=== PATIENT | female | born 1955 | race Caucasian/White ===

== ENCOUNTER 2017-06-30 08:46 | Day surgery (SDC) | payer MEDICARE, OTHER ==
[2017-06-23 11:11] LABS: ABSOLUTE EOSINOPHILS # (AUTO) 0.2 10^3/uL (0.0-0.6); ABSOLUTE LYMPHOCYTES (AUTO) 1.9 10^3/uL (0.5-4.7); ABSOLUTE MONOCYTES (AUTO) 0.4 10^3/uL (0.1-1.4); ABSOLUTE NEUT (AUTO) 2.2 10^3/uL (1.7-8.2); BASOPHILS % (AUTO) 0.7 % (0-2); EOSINOPHILS % (AUTO) 3.6 % (0-6); HEMOGLOBIN 14.5 g/dL (12.0-15.5); LYMPHOCYTES % (AUTO) 40.7 % (13-45); MEAN CORPUSCULAR HEMOGLOBIN 32.4 pg (27.0-33.4); MEAN CORPUSCULAR HGB CONC 33.6 g/dL (32.0-36.0); MEAN CORPUSCULAR VOLUME 96 fl (80-97); MONOCYTES % (AUTO) 7.6 % (3-13); PLATELET COUNT 247 10^3/uL (150-450); RED BLOOD COUNT 4.46 10^6/uL (3.72-5.28); RED CELL DISTRIBUTION WIDTH 13.3 % (11.5-14.0); SEGMENTED NEUTROPHILS % (AUTO) 47.4 % (42-78); TOTAL CELLS COUNTED % (AUTO) 100 %; WHITE BLOOD COUNT 4.7 10^3/uL (4.0-10.5)
[2017-06-23 11:16] LABS: APPEARANCE,URINE SLIGHTLY-CLOUDY; BILIRUBIN,URINE NEGATIVE (NEGATIVE); CALCIUM OXALATE CRYSTALS,URINE MANY /HPF; COLOR,URINE YELLOW; GLUCOSE, URINE NEGATIVE (NEGATIVE); KETONES,URINE NEGATIVE (NEGATIVE); LEUKOCYTE ESTERASE,URINE TRACE (NEGATIVE); NITRITE,URINE NEGATIVE (NEGATIVE); PROTEIN,URINE NEGATIVE (NEGATIVE)
--- NOTE | 2017-06-23 11:26 | RADIOLOGY REPORT (SQ) ---
EXAM DESCRIPTION: CHEST PA/LATERAL COMPLETED DATE/TIME: 06/23/2017 10:39 am REASON FOR STUDY: PRE OP COMPARISON: None. TECHNIQUE: Frontal and lateral radiographic views of the chest acquired. NUMBER OF VIEWS: Two view. LIMITATIONS: None. FINDINGS: LUNGS AND PLEURA: No opacities, masses or pneumothorax. No pleural effusion. MEDIASTINUM AND HILAR STRUCTURES: No masses or contour abnormalities. HEART AND VASCULAR STRUCTURES: Heart normal size. No evidence for failure. BONES: No acute findings. HARDWARE: None in the chest. OTHER: No other significant finding. IMPRESSION: NO SIGNIFICANT RADIOGRAPHIC FINDING IN THE CHEST. TECHNICAL DOCUMENTATION: JOB ID: [id number] [employer]- All Rights Reserved Reading location - IP/workstation name: [email or web address]
[2017-06-23 11:34] LABS: ANION GAP 11 (5-19); BLOOD UREA NITROGEN 14 mg/dL (7-20); CALCIUM 10.1 mg/dL (8.4-10.2); CARBON DIOXIDE 26 mmol/L (22-30); CHLORIDE 106 mmol/L (98-107); GLUCOSE 92 mg/dL (75-110); POTASSIUM 4.2 mmol/L (3.6-5.0)
--- NOTE | 2017-06-23 13:22 | EKG REPORT ---
SEVERITY:- NORMAL ECG - SINUS RHYTHM : Confirmed by: Carlos Kelsey MD 23-Jun-2017 13:22:12
[~2017-06-30 08:46] MED LIST: BUPIVACAINE HCL 0.5 % INJ/PF 30 ML SDV ONE; CLINDAMYCIN 600 MG/D5W RTU 600 MG/50 ML RTUPB IV PRN; LACTATED RINGERS 1000 ML IV PRN; LIDOCAINE 0.5% INJ-PF (5 MG/ML) 50 ML SDV SUBCUT PRN
[2017-06-30] MEDS ORDERED: MIDAZOLAM 2 MG/2 ML INJ ONE (10:06)
[2017-06-30] MEDS ORDERED: ACETAMINOPHEN 100 ML IV ONE (10:06)
[2017-06-30] MEDS ORDERED: PROPOFOL INJ 200 MG/20 ML VIAL IV ONE (10:06)
[2017-06-30] MEDS ORDERED: FENTANYL CITRATE INJ/PF 100 MCG/2 ML AMPUL ONE ×2 (10:06→13:09)
[2017-06-30] MEDS ORDERED: EPHEDRINE SULFATE INJ 50 MG/1 ML AMPULE ONE (10:07)
[2017-06-30] MEDS ORDERED: OXYCODONE-ACETAMINOPHEN 5-325 MG TABLET PO PRN ×3 (12:03→12:46)
[2017-06-30] MEDS ORDERED: MEPERIDINE HCL/PF INJ 25 MG/1 ML DISP.SYRIN IV PRN (12:03)
[2017-06-30] MEDS ORDERED: ONDANSETRON HCL INJ/PF 4 MG/2 ML SDV IV PRN (12:03)
[2017-06-30] MEDS ORDERED: PROMETHAZINE HCL INJ 25 MG/1 ML VIAL IV PRN ×2 (12:03)
[2017-06-30] MEDS ORDERED: FENTANYL CITRATE INJ/PF 100 MCG/2 ML AMPUL IV PRN ×3 (12:03)
[2017-06-30] MEDS ORDERED: DIPHENHYDRAMINE HCL 50 MG/ML VIAL IV PRN (12:03)
[2017-06-30] MEDS ORDERED: MORPHINE SULFATE 10 MG/ML INJ IV PRN (12:46)
--- NOTE | 2017-06-30 12:47 | Discharge Summary ---
Discharge Summary (SDC) - Discharge Final Diagnosis: Ulnar shortening osteotomy right wrist Date of Surgery: 06/30/17 Discharge Date: 06/30/17 Treatment or Instructions: Schedule Follow Up w/ Dr. Torey Brewer @ [facility] to be seen in 10-14 days or as scheduled [place]: [place]: [place]: Ice and elevate Keep splint clean/dry/intact. If your fingers become numb please unwrap the Geronimo wrap but leave the splint in place, if the sensation does not return within 30 minutes please return to the emergency department. May begin finger range of motion attempting to make full fist. Please use ibuprofen (Motrin or Advil) 600-800 mg every 8 hours as needed for pain or fever DO NOT TAKE w/ TORADOL may use once TORADOL complete. You may also use acetaminophen (Tylenol) 1000 mg every 4-6 hours as needed for pain or fever. Please be aware that many medications contain acetaminophen, do not exceed a total of 1000 mg of acetaminophen every 6 hours. If ibuprofen and acetaminophen are not sufficient for your pain you may take the Percocet/Roe. Please be aware that the Percocet/Roe does contain Tylenol. Stool softener of choice when on pain medication. Prescriptions: Ibuprofen 800 mg PO Q8 PRN #40 tablet PRN Reason: Oxycodone HCl/Acetaminophen [Percocet 5-325 mg Tablet] 1 - 2 tab PO ASDIR PRN # 35 tablet PRN Reason: Referrals: HECTOR SMITH FNP [Primary Care Provider] - Discharge Activity: No Lifting Over 10 Pounds, No Lifting/Push/Pulling Report the Following to Your Physician Immediately: Unusual Bleeding, Redness, Swelling, Warmth, Increased Soreness
--- NOTE | 2017-06-30 12:54 | Operative Report ---
Operative Report DATE OF SURGERY: 06/30/17 PREOPERATIVE DIAGNOSIS: Right wrist ulnocarpal impaction. Degenerative TFCC tear POSTOPERATIVE DIAGNOSIS: Same OPERATION: Right wrist arthroscopy with debridement of TFCC tear. Right wrist ulnar shortening osteotomy SURGEON: JACY GAMBOA ANESTHESIA: GA COMPLICATIONS: None ESTIMATED BLOOD LOSS: Minimal PROCEDURE: Indication for above procedure: 61-year-old female with right wrist pain. Patient had MRI findings demonstrating degenerative TFCC tear with ulnocarpal abutment. We discussed treatment options including operative versus intervention. We attempted conservative management including activity modification, bracing and injections without leak. At that point joint decision was made to proceed with operative treatment. Procedure In Detail: Patient was seen and evaluated in the preoperative holding area. The RIGHT upper extremity was initialized and marked. Patient received 2g of Ancef IV for bacterial prophylaxis. Patient was taken back to the operative room where transferred to the operative table and placed under general anesthesia. Once they were adequately anesthetized a nonsterile tourniquet was placed on the upper extremity. A surgical team debriefing was performed ensuring all instrumentation was available, the surgical procedure was discussed with possible concerns reviewed. The upper extremity was prepped with chlorhexidine and alcohol and draped in a sterile fashion. Patient was placed in the [employer] arthroscopy tower. A timeout was done identifying correct patient, procedure and extremity everyone in attendance agree with this and verbalized no concerns. The extremity was exsanguinated the tourniquet was inflated to 250 mmHg. A 3-4 portal was established and the arthroscope introduced into the radiocarpal joint. Via triangulation a 4-5 portal and a 6U portal were established and arthroscopic probe introduced. There is no evidence of degeneration along the radiocarpal joint normal appearing scapholunate ligament. There was significant degeneration of the distal ulna with full- thickness chondral damage and notable fraying along the proximal lunate both indicative of ulnar impaction. There is also evidence of complete TFCC tear. Arthroscopic shaver was then introduced and the TFCC tear was debrided back to a stable base. Chondroplasty was performed to the distal ulna and proximal lunate. There is mild synovitis along the volar aspect of the radiocarpal joint and a synovectomy was performed. A midcarpal radial portal was established and via triangulation a midcarpal ulnar portal established. Diagnostic arthroscopy of the midcarpal joint demonstrated Osvaldo grade II LT instability no evidence of scapholunate disruption. No significant degenerative changes of the midcarpal joint were appreciated. A longitudinal skin incision was made along the border of the ulna. Blunt dissection performed. The dorsal ulnar sensory branch was reflected with the skin flap dorsally. The interval between the FCU and ECU was established and the FCU was carefully elevated volarly. The distal ulna was exposed volarly. An [employer] ulnar shortening plate was then placed into position. C-arm fluoroscopy was obtained confirming appropriate placement of the plate. Plate was secured distally with a bicortical screw and proximally with the reduction clamp. The osteotomy guide was secured into position. The distal cut was made and then a 5 mm cut made proximally as per preoperative templating. This was then removed no remaining bone was appreciated between the osteotomy cuts. Using the reduction clamp the osteotomy site was then compressed. A compression screw was placed along the proximal aspect of the plate further compressing the osteotomy site. An interfragmentary screw was then placed perpendicular to the osteotomy cut further providing interfragmentary compression. Fixation was completed with an additional cortex screw proximally and then additional locking screw. The distal aspect of the plate was secured with a additional bicortical screw the previous bicortical screw was switched for a locking screw and then a second locking screw was placed. C-arm fluoroscopy was obtained which demonstrated adequate ulnar shortening with optimal compression. The wound was then copiously irrigated with normal saline. The interval between the ECU FCU was closed with interrupted 4-0 Monocryl suture. Subcutaneous tissues were closed with 4-0 Monocryl suture. Skin was closed a running horizontal mattress 3-0 nylon suture. The portal incisions were closed with 4-0 nylon suture. 20 cc of 0.5% Marcaine without epinephrine was injected for postoperative pain control. Patient was placed in a postoperative splint. Tourniquet was deflated patient good peripheral perfusion. Sponge counts, instrument counts, needle counts counts were correct. Patient was then awoken from anesthesia. Transferred from the operating room table to the operating room stretcher. There was no intraoperative complications patient tolerated procedure well stable to PACU. Postoperative plan: Patient will follow-up the office in 2 weeks will be set up for occupational therapy and fitted for a thermoplastic splint. Would not begin range of motion until evidence of osteotomy healing.
[2017-06-30] MEDS ORDERED: MEPERIDINE HCL/PF INJ 25 MG/1 ML DISP.SYRIN ONE (13:10)
--- NOTE | 2017-06-30 13:20 | RADIOLOGY REPORT (SQ) ---
EXAM DESCRIPTION: NO CHG FLUORO; WRIST RIGHT 2 VIEWS COMPLETED DATE/TIME: 06/30/2017 1:00 pm REASON FOR STUDY: RT WRIST ARTHROSCOPY/ULNER SHORTENING COMPARISON: None. FLUOROSCOPY TIME: 58 seconds 5 Images saved to PACS LIMITATIONS: None. PROCEDURE: Ulnar shortening procedure. FINDINGS: 5 images from fluoro document placement of a compression plate to stabilize the osteotomy site. IMPRESSION: Ulnar shortening procedure. Refer to operative note for further detail. COMMENT: PQRS 6045F: Fluoroscopy time of the procedure is documented in the report. TECHNICAL DOCUMENTATION: JOB ID: [id number] [employer]- All Rights Reserved Reading location - IP/workstation name: [email or web address]
--- NOTE | 2017-06-30 13:20 | RADIOLOGY REPORT (SQ) ---
EXAM DESCRIPTION: NO CHG FLUORO; WRIST RIGHT 2 VIEWS COMPLETED DATE/TIME: 06/30/2017 1:00 pm REASON FOR STUDY: RT WRIST ARTHROSCOPY/ULNER SHORTENING COMPARISON: None. FLUOROSCOPY TIME: 58 seconds 5 Images saved to PACS LIMITATIONS: None. PROCEDURE: Ulnar shortening procedure. FINDINGS: 5 images from fluoro document placement of a compression plate to stabilize the osteotomy site. IMPRESSION: Ulnar shortening procedure. Refer to operative note for further detail. COMMENT: PQRS 6045F: Fluoroscopy time of the procedure is documented in the report. TECHNICAL DOCUMENTATION: JOB ID: [id number] [employer]- All Rights Reserved Reading location - IP/workstation name: [email or web address]
[2017-06-30] MEDS ORDERED: ONDANSETRON HCL INJ/PF 4 MG/2 ML SDV ONE (15:00)
[2017-06-30] MEDS ORDERED: METOCLOPRAMIDE HCL INJ/PF 10 MG/2 ML SDV ONE (15:00)
[2017-06-30] MEDS ORDERED: KETOROLAC TROMETHAMINE 60 MG/2 ML SDV ONE (15:00)
[2017-06-30] MEDS ORDERED: DEXAMETHASONE SOD PHOSPHATE INJ 4 MG/1 ML VIAL ONE (15:00)
[2017-06-30] MEDS ORDERED: SUCCINYLCHOLINE CHLORIDE INJ 200 MG/10 ML VIAL ONE (15:00)
[2017-06-30] MEDS ORDERED: LIDOCAINE 2% INJ-PF (20 MG/ML) 2 ML AMPUL ONE (15:00)
[2017-06-30 15:42] VITALS: BP 115/68
== END 2017-06-30 15:20 | disposition home or self-care (01) ==
LOC: OROUT 08:46
PROVIDERS: ATTEND Orthopaedic Surgery
PROC: 0PBK0ZZ Excision of Right Ulna, Open Approach (ICD-10-PCS; principal; 2017-06-30 11:00)
PROC: 0RBN4ZZ Excision of Right Wrist Joint, Percutaneous Endoscopic Approach (ICD-10-PCS; 2017-06-30 11:00)
DX: M25.531 Pain in right wrist (principal); M24.831 Other specific joint derangements of right wrist, not elsewhere classified; M24.131 Other articular cartilage disorders, right wrist; M25.831 Other specified joint disorders, right wrist; S63.591A Other specified sprain of right wrist, initial encounter; X58.XXXA Exposure to other specified factors, initial encounter; M65.831 Other synovitis and tenosynovitis, right forearm; Z01.818 Encounter for other preprocedural examination; Z79.899 Other long term (current) drug therapy
CPT/HCPCS: 25390; 29846; 93005; 36415; 85025; 80048; 81001; 71046; 73100; 93010; C1713; J2250; J3490 ×3; J1100; J1885; J3010; J2765; A9270; J0330; J2405; J2704; J0131; 01830; J2175